=== PATIENT | female | born 1955 | race Hispanic/Latino ===

== ENCOUNTER 2017-12-02 18:41 | Observation (INO) | payer OTHER, BC ==
[2017-12-02] MEDS ORDERED: SODIUM CHLORIDE 0.9% 1000ML 3,000 ML IV ONE (19:10)
[2017-12-02] MEDS ORDERED: ACETAMINOPHEN EXTRA STRENGTH 500 MG TABLET ONE (19:11)
[2017-12-02 19:13] LABS: BASOPHILS % (AUTO) 0.3 % (0.0-5.0); EOSINOPHILS % (AUTO) 0.1 % (0.0-8.0); HEMATOCRIT 44.1 % (36-48); LYMPHOCYTES % (AUTO) 8.7 % (21.0-51.0); MEAN CORPUSCULAR HGB CONC 34.3 g/dL (32.0-36.0); MEAN CORPUSCULAR VOLUME 90.6 fL (79-99); MONOCYTES % (AUTO) 6.5 % (3.0-13.0); NEUTROPHILS % (AUTO) 84.4 % (40.0-77.0); PLATELET COUNT (AUTO) 282 K/uL (130-400); RED BLOOD CELL COUNT(AUTO) 4.86 MIL/uL (4.00-5.50); RED CELL DISTRIBUTION WIDTH 13.1 % (11.0-15.5); WHITE BLOOD COUNT (AUTO) 13.2 K/uL (4.8-10.8)
[2017-12-02 19:22] LABS: CARBON DIOXIDE 28 mmol/L (21-32); CHLORIDE 104 mmol/L (101-111); CREATININE 0.9 mg/dL (0.5-1.5); GLOMERULAR FILTR. RATE CALC 67 mL/min (>60); GLUCOSE,RANDOM 167 mg/dL (70-105); POTASSIUM 3.7 mmol/L (3.5-5.1); SODIUM SERUM 140 mmol/L (136-145); UREA NITROGEN, BLOOD 17 mg/dL (7-18)
[2017-12-02 19:28] LABS: INR 0.94 (0.85-1.15); PARTIAL THROMBOPLASTIN TIME 26.8 SEC (26.3-35.5); PROTHROMBIN TIME 9.9 SEC (9.6-11.6)
[2017-12-02 19:36] LABS: ALANINE AMINOTRANSFERASE 41 U/L (12-78); ALBUMIN 3.9 g/dL (3.5-5.0); ASPARTATE AMINOTRANSFERASE 33 U/L (10-37); BILIRUBIN,TOTAL 0.6 mg/dL (0.2-1.0); CREATINE KINASE MB < 0.5 ng/mL (0.5-3.6); CREATINE KINASE, TOTAL 54 U/L (21-232); MYOGLOBIN 25 ng/mL (10-92); TOTAL PROTEIN, SERUM 7.6 g/dL (6.0-8.3); TROPONIN I < 0.04 ng/mL (0.00-0.06)
[2017-12-02 19:50] LABS: RAPID GROUP A STREP NEGATIVE (NEGATIVE)
[2017-12-02] MEDS ORDERED: KETOROLAC TROMETHAMINE 30MG/ML ONE (20:31)
[2017-12-02 20:44] LABS: APPEARANCE,URINE Clear (CLEAR); BILIRUBIN,URINE Negative (NEGATIVE); COLOR,URINE Yellow (YELLOW); GLUCOSE, URINE (UA) Negative (NEGATIVE); KETONES,URINE Negative (NEGATIVE); LEUKOCYTE ESTERASE ,URINE Negative (NEGATIVE); NITRATE,URINE Negative (NEGATIVE); OCCULT BLOOD,URINE Negative (NEGATIVE); PH,URINE >=9.0 (5.0-8.0); PROTEIN,URINE Negative (NEGATIVE)
[2017-12-02] MEDS ORDERED: ONDANSETRON HCL 4 MG/2 ML VIAL ONE (21:37)
[2017-12-02] MEDS ORDERED: LEVOFLOXACIN 750 MG/D5W 150 ML 150 ML ONE (21:59)
[2017-12-02] MEDS ORDERED: ASPI-555 PO (22:55)
[2017-12-02] MEDS ORDERED: BUTA1CAP53 PO (22:55)
[2017-12-02] MEDS ORDERED: NITR0.4T50 SL (22:55)
[2017-12-02] MEDS ORDERED: METO50TA18 PO (22:55)
[2017-12-02] MEDS ORDERED: GLIM2TAB3 PO (22:55)
[2017-12-02] MEDS ORDERED: ONDA8TAB12 PO (22:55)
[2017-12-02] MEDS ORDERED: FENO160 PO (22:55)
[2017-12-02] MEDS ORDERED: [UNRECOGNIZED DRUG - CODE] PO (22:55)
[2017-12-02] MEDS ORDERED: ATOR10 PO (22:55)
[2017-12-02] MEDS ORDERED: CHLO500T3 PO (22:55)
[2017-12-02] MEDS ORDERED: CHOL4PAC6 PO (22:55)
[2017-12-02] MEDS ORDERED: MELO7.5O PO (22:55)
[2017-12-02] MEDS ORDERED: INSU100I21 SQ (22:55)
[2017-12-02 23:09] VITALS: BP 105/71
[2017-12-03] MEDS: LEVOFLOXACIN 750 MG/D5W 150 ML 150 ML IV SCH
[2017-12-03 03:51] VITALS: BP 121/73
[2017-12-03 04:19] LABS: HEMATOCRIT 37.4 % (36-48); MEAN CORPUSCULAR HEMOGLOBIN 32.1 pg (27.0-33.0); MEAN CORPUSCULAR HGB CONC 35.2 g/dL (32.0-36.0); MEAN CORPUSCULAR VOLUME 91.3 fL (79-99); PLATELET COUNT (AUTO) 261 K/uL (130-400); RED BLOOD CELL COUNT(AUTO) 4.09 MIL/uL (4.00-5.50); RED CELL DISTRIBUTION WIDTH 12.9 % (11.0-15.5); WHITE BLOOD COUNT (AUTO) 12.3 K/uL (4.8-10.8)
[2017-12-03 04:39] LABS: BILIRUBIN,TOTAL 0.7 mg/dL (0.2-1.0); POTASSIUM 4.3 mmol/L (3.5-5.1); TOTAL PROTEIN, SERUM 6.2 g/dL (6.0-8.3)
[2017-12-03 07:00] VITALS: BP 102/54
[2017-12-03 11:00] VITALS: BP 120/72
[2017-12-03 16:00] VITALS: BP 106/64
[2017-12-03] MEDS ORDERED: GUAIFENESIN-DM 200/20 MG 10 ML PO PRN (19:00)
[2017-12-03] MEDS ORDERED: NITROGLYCERIN 0.4 MG SL TAB SL PRN (19:15)
[2017-12-03] MEDS ORDERED: ONDANSETRON ODT 4 MG TAB PO PRN (19:15)
[2017-12-03] MEDS ORDERED: INSULIN GLARGINE 100 UNITS/ML 10 ML VIAL SQ PRN (19:15)
[2017-12-03] MEDS ORDERED: BUTALB/ACETAMINOPHEN/CAFFEINE 1 EACH TABLET PO PRN (19:15)
[2017-12-03] MEDS ORDERED: MELOXICAM 7.5 MG TABLET PO PRN (19:15)
[2017-12-03 19:18] VITALS: BP 116/75
[2017-12-03] MEDS ORDERED: CHLORZOXAZONE 250 MG PO PRN (19:26)
[2017-12-03] MEDS ORDERED: CHLORZOXAZONE 500 MG PO PRN (19:28)
[2017-12-03] MEDS: ATORVASTATIN CALCIUM 20 MG TABLET PO SCH (21:00)
[2017-12-03] MEDS: GLIMEPIRIDE 2 MG TABLET PO SCH (21:00)
[2017-12-03] MEDS: FENOFIBRATE 160 MG PO SCH (21:00)
[2017-12-03 23:34] VITALS: BP 111/73
[2017-12-04] MEDS: LEVOFLOXACIN 750 MG/D5W 150 ML 150 ML IV SCH (00:04)
[2017-12-04 03:34] VITALS: BP 108/63
[2017-12-04 06:27] LABS: HEMATOCRIT 41.3 % (36-48); MEAN CORPUSCULAR HEMOGLOBIN 31.9 pg (27.0-33.0); MEAN CORPUSCULAR HGB CONC 35.1 g/dL (32.0-36.0); MEAN CORPUSCULAR VOLUME 90.9 fL (79-99); PLATELET COUNT (AUTO) 250 K/uL (130-400); RED BLOOD CELL COUNT(AUTO) 4.54 MIL/uL (4.00-5.50); WHITE BLOOD COUNT (AUTO) 6.7 K/uL (4.8-10.8)
[2017-12-04 06:35] LABS: CREATININE 0.9 mg/dL (0.5-1.5); POTASSIUM 4.4 mmol/L (3.5-5.1)
[2017-12-04 07:38] LABS: BAND NEUTROPHILS % (MANUAL) 3 % (0-2); BASOPHILS % (MANUAL) 1 % (0-2); LYMPHOCYTES % (MANUAL) 38 % (22-44); MAN.DIFF COMMENT-IMPRESSION MANUAL DIFFERENTIAL; MONOCYTES % (MANUAL) 6 % (2-9); PLATELET MORPHOLOGY COMMENT ADEQUATE; SEGMENTED NEUTROPHILS % 52 % (40-70)
[2017-12-04 07:53] VITALS: BP 97/49
[2017-12-04] MEDS: ASPIRIN 81 MG EC TAB PO SCH (08:47)
[2017-12-04] MEDS: GLIMEPIRIDE 2 MG TABLET PO SCH ×2 (08:47→21:46)
[2017-12-04] MEDS: METOPROLOL TARTRATE 50 MG TAB PO SCH (08:47)
[2017-12-04] MEDS: CHOLESTYRAMINE PACKET 4 GM PACKET PO SCH (08:49)
[2017-12-04 11:52] VITALS: BP 101/58
[2017-12-04] MEDS: ACETYLCYSTEINE 20% 200MG/ML 4ML VIAL IH SCH ×2 (12:58→20:02)
[2017-12-04] MEDS: IPRATROPIUM/ALBUTEROL SULFATE 3 ML SOLUTION IH SCH ×2 (12:58→20:02)
[2017-12-04 16:00] VITALS: BP 112/67
[2017-12-04 19:22] VITALS: BP 109/68
[2017-12-04] MEDS: FENOFIBRATE 160 MG PO SCH (21:00)
[2017-12-04] MEDS: ATORVASTATIN CALCIUM 20 MG TABLET PO SCH (21:46)
[2017-12-04 23:32] VITALS: BP 113/76
[2017-12-05] MEDS: LEVOFLOXACIN 750 MG/D5W 150 ML 150 ML IV SCH (01:21)
[2017-12-05] MEDS: IPRATROPIUM/ALBUTEROL SULFATE 3 ML SOLUTION IH SCH ×2 (01:52→06:34)
[2017-12-05] MEDS: ACETYLCYSTEINE 20% 200MG/ML 4ML VIAL IH SCH ×2 (01:52→06:35)
[2017-12-05 03:39] VITALS: BP 102/61
[2017-12-05 06:44] VITALS: BP 119/73
[2017-12-05] MEDS: GLIMEPIRIDE 2 MG TABLET PO SCH (09:35)
[2017-12-05] MEDS: ASPIRIN 81 MG EC TAB PO SCH (09:35)
[2017-12-05] MEDS: CHOLESTYRAMINE PACKET 4 GM PACKET PO SCH (09:35)
[2017-12-05] MEDS: METOPROLOL TARTRATE 50 MG TAB PO SCH (09:35)
[2017-12-05] MEDS ORDERED: LEVO500S PO (11:01)
== END 2017-12-05 11:50 | disposition home or self-care (01) ==
LOC: EDH 18:41 → EDHIP 21:58 → 3CH 22:52
PROVIDERS: ADMIT Internal Medicine; ATTEND Internal Medicine
DX: J18.9 Pneumonia, unspecified organism (principal); G47.33 Obstructive sleep apnea (adult) (pediatric); E11.9 Type 2 diabetes mellitus without complications; I25.10 Atherosclerotic heart disease of native coronary artery without angina pectoris; E66.01 Morbid (severe) obesity due to excess calories
CPT/HCPCS: 36415 ×3; 71045; 71250; 80048; 80053 ×2; 81003; 82550; 82553; 82948 ×8; 83605; 83874; 84484; 85025 ×2; 85027; 85610; 85730; 87040 ×2; 87088; 87186; 87804 ×2; 87880; 93005; 94640 ×4; 94664; 96365; 96366; 99285; G0378 ×62; J1885; J1956 ×3; J2405; J7030; J7608 ×6

== ENCOUNTER 2019-07-07 15:59 | Emergency (ER) | payer BC, OTHER ==
[~2019-07-07 15:59] MED LIST: ASPI-555 PO; ATOR10 PO; BUTA1CAP53 PO; CHLO500T3 PO; CHOL4PAC6 PO; FENO160 PO; GLIM2TAB3 PO; INSU100I21 SQ; LEVO500S PO; MELO7.5O PO; METO50TA18 PO; NITR0.4T50 SL; ONDA8TAB12 PO; [UNRECOGNIZED DRUG - CODE] PO
[2019-07-07] MEDS ORDERED: LIDOCAINE 5% TOPICAL PATCH TP ONE (16:24)
[2019-07-07] MEDS ORDERED: KETOROLAC TROMETHAMINE 60 MG/2 ML VIAL ONE (16:24)
== END 2019-07-07 17:12 | disposition home or self-care (01) ==
LOC: EDH 15:59
DX: S46.911A Strain of unspecified muscle, fascia and tendon at shoulder and upper arm level, right arm, initial encounter (principal); M62.838 Other muscle spasm; E11.9 Type 2 diabetes mellitus without complications; I25.10 Atherosclerotic heart disease of native coronary artery without angina pectoris; Z85.6 Personal history of leukemia; W22.8XXA Striking against or struck by other objects, initial encounter; Y93.89 Activity, other specified; Y92.89 Other specified places as the place of occurrence of the external cause; Y99.8 Other external cause status
CPT/HCPCS: 73030; 96372; 99284; J1885

== ENCOUNTER → 2023-02-03 | Outpatient (CLI) | payer MEDICARE ==
[~2023-02-03] MED LIST changes: -ASPI-555 PO; +ASPI-556 PO; -GLIM2TAB3 PO; +GLIM2TAB30 PO; -INSU100I21 SQ; +INSU100I22 SQ
== END | disposition home or self-care (01) ==
LOC: RAH 09:53
PROVIDERS: ATTEND Internal Medicine Gastroenterology
DX: K44.9 Diaphragmatic hernia without obstruction or gangrene (principal); K21.9 Gastro-esophageal reflux disease without esophagitis; R06.6 Hiccough
CPT/HCPCS: 74240

== ENCOUNTER 2023-04-09 22:52 | Emergency (ER) | payer MEDICARE ==
[~2023-04-09] VITALS: Ht 157.5 cm; Wt 80.3 kg
[2023-04-09] MEDS ORDERED: ONDANSETRON 4MG INJ ONE (23:23)
[2023-04-09 23:25] LABS: BASOPHILS % (AUTO) 0.3 % (0.0-5.0); EOSINOPHILS % (AUTO) 1.5 % (0.0-8.0); HEMATOCRIT 48.1 % (36-48); LYMPHOCYTES % (AUTO) 36.7 % (21.0-51.0); MEAN CORPUSCULAR HGB CONC 33.3 g/dL (32.0-36.0); MEAN CORPUSCULAR VOLUME 90.2 fL (79-99); MONOCYTES % (AUTO) 8.9 % (3.0-13.0); NEUTROPHILS % (AUTO) 52.4 % (40.0-77.0); PLATELET COUNT (AUTO) 257 K/uL (130-400); RED BLOOD CELL COUNT(AUTO) 5.33 MIL/uL (4.00-5.50); RED CELL DISTRIBUTION WIDTH 13.2 % (11.0-15.5); WHITE BLOOD COUNT (AUTO) 6.2 K/uL (4.8-10.8)
[2023-04-09 23:28] LABS: BILIRUBIN,URINE NEGATIVE (NEGATIVE); GLUCOSE, URINE (UA) >=1000 mg/dL (NEGATIVE); KETONES,URINE NEGATIVE (NEGATIVE); LEUKOCYTE ESTERASE ,URINE SMALL Leu/uL (NEGATIVE); NITRATE,URINE NEGATIVE (NEGATIVE); OCCULT BLOOD,URINE LARGE (NEGATIVE); PROTEIN,URINE 30 mg/dL (NEGATIVE); UROBILINOGEN,URINE 0.2 mg/dL (0.2-1.0)
[2023-04-09] MEDS ORDERED: LACTATED RINGERS 1000ML 1,000 ML IV ONE (23:30)
[2023-04-09 23:33] LABS: POTASSIUM 3.7 mmol/L (3.5-5.1)
[2023-04-09 23:37] LABS: APPEARANCE,URINE CLOUDY (CLEAR); COLOR,URINE ORANGE (YELLOW); TOTAL PROTEIN, SERUM 7.6 g/dL (6.0-8.3)
[2023-04-09 23:50] LABS: RBC,URINE TNTC /HPF (0-1)
[2023-04-09 23:51] LABS: BACTERIA,URINE Moderate /HPF (None Seen); SQUAMOUS EPITHELIAL CELL,UR Few /HPF (0-2)
[2023-04-10] MEDS ORDERED: PHEN-847 PO (00:15)
[2023-04-10] MEDS ORDERED: CEFU500T67 PO (00:15)
[2023-04-10] MEDS ORDERED: CEFTRIAXONE 1G VIAL ONE (00:29)
[2023-04-10] MEDS ORDERED: MORPHINE 2 MG SYG ONE (00:29)
[2023-04-10] MEDS ORDERED: MORPHINE 2 MG SYG IVP ONE (00:30)
[2023-04-10] MEDS ORDERED: CEFTRIAXONE 1G VIAL IVPB ONE (00:30)
[2023-04-10 01:03] VITALS: BP 126/79
== END 2023-04-10 01:04 | disposition home or self-care (01) ==
LOC: EDH 22:52
DX: N39.0 Urinary tract infection, site not specified (principal); R31.9 Hematuria, unspecified; Z79.899 Other long term (current) drug therapy; Z90.49 Acquired absence of other specified parts of digestive tract
CPT/HCPCS: 99284; 96361; 96375 ×2; 82550; 80053; 83690; 85025; 87077; 87088; 87186; 81001; 81025; 36415; 96365; J7120; J2405; J2270; J0696

== ENCOUNTER 2024-11-13 06:34 | Day surgery (SDC) | payer MEDICARE ==
[~2024-11-13] VITALS: Ht 157.5 cm; Wt 77.1 kg
[2024-11-13] VITALS (11 sets, daily range): BP systolic 98–135; BP diastolic 49–76; PULSE 63–88; RESP 13–18; TEMP 97.1–97.6
[~2024-11-13 06:34] MED LIST changes: +CEFU500T67 PO; +ONDA-245 PO; -ONDA8TAB12 PO; +PHEN-847 PO
[2024-11-13] MEDS ORDERED: METO-408 PO (07:45)
[2024-11-13] MEDS ORDERED: INSU300I SQ (07:52)
[2024-11-13] MEDS ORDERED: ACET-2079 PO (07:52)
[2024-11-13] MEDS ORDERED: DICY20TA3 PO (07:52)
[2024-11-13] MEDS ORDERED: OMEP40CA21 PO (07:52)
[2024-11-13] MEDS ORDERED: ACET-2123 PO (07:52)
[2024-11-13] MEDS ORDERED: ERGO500093 PO (07:52)
[2024-11-13] MEDS ORDERED: NITR100C PO (07:52)
[2024-11-13] MEDS ORDERED: OXYB10TA30 PO (07:52)
[2024-11-13] MEDS ORDERED: INSU100C14 SQ (07:52)
[2024-11-13] MEDS ORDERED: DAPA5TAB PO (07:52)
[2024-11-13] MEDS ORDERED: TRAMADOL PO (07:52)
[2024-11-13] MEDS: 0.9%NACL 1000ML 1,000 ML IV ONE (07:54)
[2024-11-13] MEDS ORDERED: proPOFol 10 MG/ML 20ML VIAL IV ONE (08:02)
[2024-11-13] MEDS ORDERED: ondanSETRON 4MG INJ ONE (08:02)
[2024-11-13] MEDS ORDERED: LIDOCAINE PF 100MG/5ML (2%) SYRINGE 5ML ONE (08:02)
== END 2024-11-13 09:55 | disposition home or self-care (01) ==
LOC: ENDO 06:34 → DAH 06:34 → ENDO 09:55
PROVIDERS: ATTEND Internal Medicine Gastroenterology
DX: R13.10 Dysphagia, unspecified (principal); K44.9 Diaphragmatic hernia without obstruction or gangrene; R12 Heartburn; K29.70 Gastritis, unspecified, without bleeding; K22.89 Other specified disease of esophagus; K21.9 Gastro-esophageal reflux disease without esophagitis; K43.9 Ventral hernia without obstruction or gangrene; K76.0 Fatty (change of) liver, not elsewhere classified; K64.9 Unspecified hemorrhoids; K57.90 Diverticulosis of intestine, part unspecified, without perforation or abscess without bleeding; E11.9 Type 2 diabetes mellitus without complications; E78.5 Hyperlipidemia, unspecified; E66.9 Obesity, unspecified; Z86.0100 Personal history of colon polyps, unspecified; Z68.31 Body mass index [BMI] 31.0-31.9, adult; Z98.890 Other specified postprocedural states; Z90.710 Acquired absence of both cervix and uterus; Z90.89 Acquired absence of other organs; Z90.49 Acquired absence of other specified parts of digestive tract; Z79.899 Other long term (current) drug therapy
CPT/HCPCS: 82948 ×2; 43239; J7030 ×2; J2003; J2704; J2405; A4620; A4215; A4223; A7002; A4222; A4221; A4663; A4606; J3490